=== PATIENT | male | born 1960 | race Caucasian/White ===

== ENCOUNTER 2017-07-20 01:57 | Inpatient (IN) | payer BC ==
[2017-07-20] MEDS ORDERED: Sodium Chloride 0.9% 10 ML Syringe FLUSH PRN (02:26)
--- NOTE | 2017-07-20 02:31 | EDM.PDOC ---
ED HPI GENERAL MEDICAL PROBLEM - General Chief Complaint: Abdominal Pain Stated Complaint: ABD PAIN Time Seen by Provider: 07/20/17 02:10 Source of Information: Reports: Patient History Limitations: Reports: No Limitations - History of Present Illness INITIAL COMMENTS - FREE TEXT/NARRATIVE: 48-year-old male with intense epigastric discomfort for the last 5 hours. After he got off the tractor this evening his "kidneys hurt" but as the night has gone on and is developed a new and epigastric pain. No nausea or vomiting. He did have a stent placed last year or so took a nitroglycerin but that had no effect. He has a lot of heartburn, and is also on Plavix because of the stent. He has not tried an antacid. He denies any shortness of breath. The pain seems to be slowly worsening with time. No recent trauma. No fevers or chills, denies a cough. Onset: Gradual Location: Reports: Chest (Epigastric area of the abdomen and lower chest), Abdomen Quality: Reports: Pressure, Sharp, Stabbing Severity: Moderate Improves with: Reports: None Worsens with: Reports: None Associated Symptoms: Denies: Cough, Fever/Chills, Headaches, Nausea/Vomiting, Shortness of Breath, Weakness Upper Abdomen Pain Score (Numeric/FACES): 6 - Related Data Allergies Allergy/AdvReac Type Severity Reaction Status Date / Time No Known Allergies Allergy Verified 07/20/17 02:14 Home Meds: Home Meds Aspirin 81 mg PO DAILY 01/14/16 [History] Lisinopril [Prinivil] 20 mg PO DAILY 01/14/16 [History] Metoprolol Tartrate 25 mg PO BID 01/14/16 [History] Triamcinolone Acetonide [Triamcinolone Acetonide 0.1% Crm] 1 applic TOP BID 03/23 [History] metroNIDAZOLE [metroNIDAZOLE 0.75% Cream] 1 applic TOP DAILY 11/05/16 [History] Clopidogrel Bisulfate [Clopidogrel] 75 mg PO DAILY 07/20/17 [History] atorvaSTATin Calcium [Atorvastatin Calcium] 40 mg PO DAILY 07/20/17 [History] Past Medical History HEENT History: Reports: Other (See Below) Other HEENT History: tinnitus Cardiovascular History: Reports: CAD, High Cholesterol, Hypertension Genitourinary History: Reports: Renal Calculus Musculoskeletal History: Reports: Fracture, Neck Pain, Chronic, Other (See Below ) Other Musculoskeletal History: cervical fusion Psychiatric History: Reports: Addiction 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 - Past Surgical History Cardiovascular Surgical History: Reports: Coronary Artery Stent, Percutaneous Transluminal Angioplasty Other Male Surgeries/Procedures: stent Neurological Surgical History: Reports: C-Spine Other Neurological Surgeries/Procedures: fusion Social & Family History - Tobacco Use Smoking Status *Q: Never Smoker - Caffeine Use Caffeine Use: Reports: Coffee - Recreational Drug Use Recreational Drug Use: No ED ROS GENERAL - Review of Systems Review Of Systems: See Below Constitutional: Denies: Fever, Chills HEENT: Reports: No Symptoms Respiratory: Denies: Shortness of Breath, Cough Cardiovascular: Reports: Chest Pain (Deep lower epigastric area only no radiation) GI/Abdominal: Reports: Abdominal Pain. Denies: Nausea, Vomiting : Reports: No Symptoms Musculoskeletal: Reports: Back Pain (Some back pain earlier today) Skin: Reports: No Symptoms Neurological: Reports: No Symptoms Psychiatric: Reports: No Symptoms ED EXAM, GENERAL - Physical Exam Exam: See Below Exam Limited By: No Limitations General Appearance: Alert, Mild Distress (Looks fairly uncomfortable) Eye Exam: Bilateral Eye: Normal Inspection Neck: Normal Inspection Respiratory/Chest: No Respiratory Distress, Lungs Clear Cardiovascular: Regular Rate, Rhythm GI/Abdominal: Soft, Tender (I can reproduce some tenderness with palpation directly over the epigastric area) Extremities: Normal Inspection Neurological: Alert, Oriented Psychiatric: Normal Affect, Normal Mood Skin Exam: Warm, Dry Course - Vital Signs Last Recorded V/S: Last Vital Signs Temp 98.9 F 07/20/17 12:17 Pulse 98 07/20/17 12:18 Resp 16 07/20/17 12:17 BP 129/90 07/20/17 12:18 Pulse Ox 88 L 07/20/17 12:57 - Orders/Labs/Meds Orders: Active Orders 24 hr Category Date Time Status Abdomen Pelvis w Cont [CT] Stat Exams 07/20/17 03:22 Taken Sodium Chloride 0.9% [Saline Flush] Med 07/20/17 02:26 Active 10 ml FLUSH ASDIRECTED PRN Saline Lock Insert [OM.PC] Routine Oth 07/20/17 02:26 Ordered EKG 12 Lead [EK] Routine Ther 07/20/17 02:26 Ordered Medication Orders Ropivacaine 50 ml/Dexamethasone 8 mg/Epinephrine HCl 0.4 mg/ Sodium Chloride 27.6 ml [address] Diphtheria/Tetanus/Acell Pertussis (Adacel) 0.5 ml IM .ONCE ONE Stop: 07/22/17 07:01 Hydromorphone HCl (Dilaudid Rolling Machine Operator 15 Mg In Ns 30 Ml) 0 mg IV ASDIRECTED PRN; Protocol PRN Reason: SAW SUPERINTENDENT PAIN CONTROL Last Admin: 07/20/17 06:07 Dose: 15 mg Dextrose/Lactated Ringer's (Dextrose 5%-Lactated Ringers) 1,000 mls @ 150 mls/ hr IV ASDIRECTED PRN PRN Reason: Other Last Admin: 07/20/17 14:59 Dose: 150 mls/hr Infusion: 07/20/17 12:43 Dose: 150 mls/hr Admin: 07/20/17 06:02 Dose: 150 mls/hr Ampicillin Sodium/Sulbactam (Sodium 3 gm/ Sodium Chloride) 100 mls @ 200 mls/ hr IV Q6H [facility] Last Admin: 07/20/17 15:02 Dose: 200 mls/hr Admin: 07/20/17 12:18 Dose: 200 mls/hr Aztreonam/Dextrose 1 gm/ (Premix) 50 mls @ 100 mls/hr IV Q8H [facility] Last Admin: 07/20/17 16:06 Dose: 100 mls/hr Admin: 07/20/17 10:58 Dose: 100 mls/hr Lisinopril (Prinivil) 20 mg PO DAILY [facility] Last Admin: 07/20/17 12:18 Dose: 20 mg Metoprolol Tartrate (Lopressor) 25 mg PO BID [facility] Last Admin: 07/20/17 12:18 Dose: 25 mg Naloxone HCl (Narcan) 0.1 mg IV ASDIRECTED PRN PRN Reason: decreased respiratory rate Ondansetron HCl (Zofran) 4 mg IVPUSH Q3H PRN PRN Reason: Nausea/Vomiting Last Admin: 07/20/17 11:07 Dose: 4 mg Sodium Chloride (Saline Flush) 10 ml FLUSH ASDIRECTED PRN PRN Reason: Keep Vein Open Last Admin: 07/20/17 02:53 Dose: 10 ml Labs: Laboratory Tests 07/20/17 07/20/17 Range/Units 02:40 02:40 WBC 6.4 (4.5-11.0) K/uL RBC 5.19 (4.30-5.90) M/uL Hgb 16.2 H (12.0-15.0) g/dL Hct 45.5 (40.0-54.0) % MCV 88 (80-98) fL MCH 31 (27-31) pg MCHC 36 (32-36) % Plt Count 146 L (150-400) K/uL Neut % (Auto) 51 (36-66) % Lymph % (Auto) 34 (24-44) % Jewell % (Auto) 11 H (2-6) % Eos % (Auto) 4 (2-4) % Baso % (Auto) 1 (0-1) % Sodium 140 (140-148) mmol/L Potassium 3.7 (3.6-5.2) mmol/L Chloride 107 (100-108) mmol/L Carbon Dioxide 23 (21-32) mmol/L Anion Gap 10.2 (5.0-14.0) mmol/L BUN 13 (7-18) mg/dL Creatinine 1.0 (0.8-1.3) mg/dL Est Cr Clr Drug Dosing 88.38 mL/min Estimated GFR (MDRD) > 60 (>60) Glucose 99 (74-106) mg/dL Calcium 8.7 (8.5-10.1) mg/dL Total Bilirubin 1.0 D (0.2-1.0) mg/dL AST 58 H D (15-37) U/L ALT 65 (12-78) U/L Alkaline Phosphatase 98 (46-116) U/L Troponin I < 0.017 (0.000-0.056) ng/mL Total Protein 7.1 (6.4-8.2) g/dL Albumin 3.4 (3.4-5.0) g/dL Globulin 3.7 H (2.3-3.5) g/dL Albumin/Globulin Ratio 0.9 L (1.2-2.2) Lipase 180 (73-393) U/L Meds: Medications Generic Name Dose Route Start Last Admin Trade Name Freq PRN Reason Stop Dose Admin Ropivacaine 50 ml/ 0 ml 07/21/17 09:30 Dexamethasone 8 mg/ NERVRT Epinephrine HCl 0.4 mg/ Sodium ASDIRECTED AVE Chloride 27.6 ml Diphtheria/Tetanus/Acell Pertussis 0.5 ml 07/22/17 07:00 Adacel IM 07/22/17 07:01 .ONCE ONE Hydromorphone HCl 0 mg 07/20/17 05:56 07/20/17 06:07 Dilaudid Rolling Machine Operator 15 Mg In Ns 30 Ml IV 15 mg ASDIRECTED PRN Administration SAW SUPERINTENDENT PAIN CONTROL Protocol Dextrose/Lactated Ringer's 1,000 mls @ 150 mls/hr 07/20/17 05:58 07/20/17 14: 59 Dextrose 5%-Lactated Ringers IV 150 mls/hr ASDIRECTED PRN Administration Other Ampicillin Sodium/Sulbactam 100 mls @ 200 mls/hr 07/20/17 10:00 07/20/17 15: 02 Sodium 3 gm/ Sodium Chloride IV 200 mls/hr Q6H AVE Administration Aztreonam/Dextrose 1 gm/ 50 mls @ 100 mls/hr 07/20/17 09:00 07/20/17 16:06 Premix IV 100 mls/hr Q8H AVE Administration Lisinopril 20 mg 07/20/17 11:30 07/20/17 12:18 Prinivil PO [address] Administration Metoprolol Tartrate 25 mg 07/20/17 11:45 07/20/17 12:18 Lopressor PO [address] Administration Naloxone HCl 0.1 mg 07/20/17 05:56 Narcan IV ASDIRECTED PRN decreased respiratory rate Ondansetron HCl 4 mg 07/20/17 05:59 07/20/17 11:07 Zofran IVPUSH 4 mg Q3H PRN Administration Nausea/Vomiting Sodium Chloride 10 ml 07/20/17 02:26 07/20/17 02:53 Saline Flush FLUSH 10 ml ASDIRECTED PRN Administration Keep Vein Open Discontinued Medications Generic Name Dose Route Start Last Admin Trade Name Freq PRN Reason Stop Dose Admin Al Hydroxide/Mg Hydroxide 15 0 ml 07/20/17 02:40 07/20/17 02:48 ml/ Lidocaine HCl 15 ml PO 07/20/17 02:41 30 ml ONETIME ONE Administration Hydromorphone HCl 0.5 mg 07/20/17 03:00 07/20/17 03:10 Dilaudid IVPUSH 07/20/17 03:01 0.5 mg ONETIME ONE Administration Hydromorphone HCl 0.5 mg 07/20/17 03:59 07/20/17 04:10 Dilaudid IVPUSH 07/20/17 04:00 0.5 mg ONETIME ONE Administration Sodium Chloride 1,000 mls @ 500 mls/hr 07/20/17 03:15 07/20/17 03:08 Normal Saline IV 500 mls/hr ASDIRECTED AVE Administration Sodium Chloride 85 mls @ 4 mls/sec 07/20/17 03:32 07/20/17 03:41 Normal Saline IV 07/20/17 03:33 4 mls/sec ASDIRECTED STA Administration Ampicillin Sodium/Sulbactam 50 mls @ 100 mls/hr 07/20/17 06:00 07/20/17 06:11 Sodium 1.5 gm/ Sodium Chloride IV 07/20/17 06:29 100 mls/hr ONETIME ONE Administration Iopamidol 150 ml 07/20/17 03:31 07/20/17 03:41 Isovue-300 (61%) IV 07/20/17 03:32 150 ml . DIRECTED STA Administration - Re-Assessments/Exams Free Text/Narrative Re-Assessment/Exam: 07/20/17 02:30 An EKG was obtained because of the cardiac history, CBC, CMP and lipase also obtained. A GI cocktail was given. 07/20/17 03:02 EKG was completely normal. GI cocktail helped his pain "about 5%". He was still fairly uncomfortable. At that point an IV was started, he was given 0.5 mg of IV Dilaudid and 500 mL an hour of normal saline with the intention of a CT scan with IV contrast. 07/20/17 03:36 CBC was normal, CMP also normal other than a mildly elevated AST. Troponin was 0 , rest of his labs were reassuring. 0.5 mg of IV Dilaudid gave him some relief but he was still very uncomfortable, the CT was ordered. Departure - Departure Time of Disposition: 05:37 Disposition: Admitted As Inpatient 64 Condition: Fair Clinical Impression: Abdominal pain Qualifiers: Abdominal location: epigastric Qualified Code(s): R10.13 - Epigastric pain - Discharge Information - My Orders Last 24 Hours: My Active Orders 07/20/17 02:26 Sodium Chloride 0.9% [Saline Flush] 10 ml FLUSH ASDIRECTED PRN Saline Lock Insert [OM.PC] Routine EKG 12 Lead [EK] Routine 07/20/17 03:22 Abdomen Pelvis w Cont [CT] Stat - Assessment/Plan Last 24 Hours: My Active Orders 07/20/17 02:26 Sodium Chloride 0.9% [Saline Flush] 10 ml FLUSH ASDIRECTED PRN Saline Lock Insert [OM.PC] Routine EKG 12 Lead [EK] Routine 07/20/17 03:22 Abdomen Pelvis w Cont [CT] Stat
[2017-07-20] MEDS ORDERED: Alum Hydrox/Mag Hydrox/Simeth 15 ML, Lidocaine 2% 15 ML PO ONE ×2 (02:40)
[2017-07-20] MEDS ORDERED: HYDROmorphone 0.5 MG/0.5 ML Syringe IVPUSH ONE ×2 (03:00→03:59)
[2017-07-20] MEDS ORDERED: Sodium Chloride 0.9% 1,000 ML IV SCH (03:15)
[2017-07-20] MEDS ORDERED: Iopamidol 612 MG/ML 150 ML Bottle IV STA (03:31)
[2017-07-20] MEDS ORDERED: Naloxone 0.4 MG/ML SDV IV PRN (05:56)
[2017-07-20] MEDS ORDERED: Ondansetron 4 MG/2 ML SDV IVPUSH PRN (05:59)
[2017-07-20] MEDS ORDERED: Ampicillin/Sulbactam Na 1.5 GM in Sodium Chloride 0.9% 50 ML IV ONE (06:00)
[2017-07-20] MEDS: Dextrose 5%-Lactated Ringers 1,000 ML IV PRN ×3 (06:02→23:19)
[2017-07-20] MEDS: HYDROmorphone/Normal Saline 15 MG/30 ML PCA IV PRN (06:07)
[2017-07-20] MEDS: Aztreonam/Dextrose-Water 1 GM in Premix Bag 1 BAG IV SCH ×2 (10:58→16:06)
--- NOTE | 2017-07-20 11:50 | PN ---
DATE OF SERVICE: 07/20/2017 SUBJECTIVE: Rafael is a 56-year-old male with intense epigastric discomfort 5 hours prior to coming to the emergency room this a.m. at 0210 hours. He had a complete workup in the emergency department and was found to have gallbladder disease. There was concern of having a stone in the common bile duct. Currently, he reports pain on a pain scale of 1 to 10, an 8/10. He is using his IP ATTORNEY. REVIEW OF SYSTEMS: Remainder of review of systems negative for any pertinent positives and negatives. OBJECTIVE: GENERAL: Rafael is a 56-year-old male. Color flushed. VITAL SIGNS: Height 6 feet. Weight is 223 inches. TPR is 97.3, 59, 16, and blood pressure 136/80. HEENT: Negative. NECK: Supple. HEART: Regular rate and rhythm. LUNGS: Clear. ABDOMEN: Tenderness in the right upper quadrant. Minimal right now he states with using his IP ATTORNEY for pain. Slight distention. EXTREMITIES: Without peripheral edema. ASSESSMENT: 1. Cholelithiasis. 2. Esophageal varices. 3. Cirrhosis of liver. PLAN: 1. Check MRCP today. 2. Unasyn 3 grams q.6 hours IV. 3. Azactam 1 gram q.8 hours IV. 4. Schedule, have consent signed for laparoscopic possible laparotomy, cholecystectomy with Brock-Cut needle liver biopsy. General anesthesia with TAP block. Catrachito Mcdaniel MD. , 07/21/2017, n.p.o. after midnight. 5. We will evaluate p.r.n. or in a.m. Nisa Resendiz PA-C /[id number]
--- NOTE | 2017-07-20 11:55 | MR ---
MRCP History: Eval for mild common bile duct stone. Technique: Routine MRCP sequences. Findings: The gallbladder demonstrates mild distention. There are small stones in the dependent porti on of the gallbladder. There is a stone demonstrated within the neck of the gallbladder. There is no wall thickening or pericholecystic fluid. The common bile duct is small measuring approximately 2 mm. No ductal stones are seen. The pancreas is unremarkable. There are cirrhotic changes of the liver. T he liver margins have a lobulated appearance. There is no ascites. There is mild splenomegaly with th e spleen measuring 15 cm. Impression: 1. Cholelithiasis. There are no inflammatory changes of the gallbladder. The common bile duct is norm al in caliber. There is no ductal stones seen. 2. Cirrhotic changes of the liver. There is splenomegaly. The findings are suggestive of underlying p ortal venous hypertension.
[2017-07-20] MEDS: Lisinopril 20 MG Tab PO SCH (12:18)
[2017-07-20] MEDS: Metoprolol Tartrate 25 MG Tab PO SCH ×2 (12:18→21:52)
[2017-07-20] MEDS: Ampicillin/Sulbactam Na 3 GM in Sodium Chloride 0.9% 100 ML IV SCH ×3 (12:18→21:56)
[2017-07-21] MEDS: Aztreonam/Dextrose-Water 1 GM in Premix Bag 1 BAG IV SCH ×3 (01:28→16:47)
[2017-07-21] MEDS: Ampicillin/Sulbactam Na 3 GM in Sodium Chloride 0.9% 100 ML IV SCH ×4 (03:29→21:42)
[2017-07-21] MEDS: HYDROmorphone/Normal Saline 15 MG/30 ML PCA IV PRN (05:20)
[2017-07-21] MEDS: Dextrose 5%-Lactated Ringers 1,000 ML IV PRN (07:09)
[2017-07-21] MEDS: Metoprolol Tartrate 25 MG Tab PO SCH ×2 (08:00→20:43)
[2017-07-21] MEDS ORDERED: fentaNYL 250 MCG/5 ML SDV ONE ×3 (08:42→12:31)
[2017-07-21] MEDS ORDERED: Neostigmine Methylsulfate 1 MG/ML 5 ML Syringe ONE ×2 (08:43→09:49)
[2017-07-21] MEDS ORDERED: Propofol 200 MG/20 ML SDV ONE ×2 (08:43→09:49)
[2017-07-21] MEDS ORDERED: Rocuronium 50 MG/5 ML Vial ONE ×2 (08:43→09:49)
[2017-07-21] MEDS ORDERED: Glycopyrrolate 0.2 MG/ML 5 ML MDV ONE ×2 (08:43→09:49)
[2017-07-21] MEDS ORDERED: Succinylcholine 200 MG/10 ML MDV ONE ×2 (08:43→09:49)
[2017-07-21] MEDS ORDERED: Ondansetron 4 MG/2 ML SDV ONE ×2 (08:43→09:49)
[2017-07-21] MEDS ORDERED: Dexamethasone 4 MG/ML SDV ONE ×2 (08:43→09:49)
[2017-07-21] MEDS ORDERED: Ropivacaine 50 ML, Dexamethasone 8 MG, EPINEPHrine 0.4 MG, Sodium Chloride 0.9% 27.6 ML NERVRT SCH ×4 (09:30)
[2017-07-21] MEDS ORDERED: Bupivacaine 0.5%/EPINEPHrine 1:200,000 50 ML MDV ONE (09:53)
--- NOTE | 2017-07-21 09:59 | PN ---
DATE OF SERVICE: 07/21/2017 SUBJECTIVE: Rafael is n.p.o. He will be having a laparoscopic possible open cholecystectomy today. His MRCP was negative yesterday. Vital signs have been stable. The pain has been managed with a DREDGE MASTER. REVIEW OF SYSTEMS: Remainder of review of systems negative for any pertinent positives and negatives. OBJECTIVE: GENERAL: Rafael Barfield is a 56-year-old male. He is alert and orientated. VITAL SIGNS: TPR is 99.7, 79, 16, and blood pressure 120/70. HEENT: Negative. NECK: Supple. HEART: Regular rate and rhythm. LUNGS: Clear. ABDOMEN: Remains to be tender in the right and left upper quadrants. EXTREMITIES: Without peripheral edema. ASSESSMENT: 1. Cholelithiasis. 2. Esophageal varices. 3. Cirrhosis of the liver. PLAN: 1. Remain n.p.o. for surgery. 2. Case to follow. 3. Orders to be written postoperatively. 4. We will evaluate p.r.n. or in a.m. Nisa Resendiz PA-C /[id number]
[2017-07-21] MEDS ORDERED: fentaNYL 100 MCG/2 ML SDV ONE ×2 (10:12→11:34)
[2017-07-21] MEDS ORDERED: Labetalol 20 MG/4 ML Syringe ONE (10:31)
[2017-07-21] MEDS ORDERED: Lactated Ringers 1,000 ML ONE (12:14)
[2017-07-21] MEDS ORDERED: Dextrose 5%-Lactated Ringers 1,000 ML IV PRN (13:25)
[2017-07-21] MEDS ORDERED: Ondansetron 4 MG/2 ML SDV IVPUSH PRN (13:27)
--- NOTE | 2017-07-21 14:44 | PCM.CONS ---
H&P History of Present Illness - General Date of Service: 07/21/17 Admit Problem/Dx: Admission Diagnosis/Problem Admission Diagnosis/Problem Abdominal pain - History of Present Illness Initial Comments - Free Text/Narative: Mr. Barfield is a 56-year-old gentleman who I been asked to see by Dr. Mcdaniel for further suggestions concerning evaluation of hepatic cirrhosis with portal hypertension and esophageal varices. Mr. Flower presented with right upper quadrant abdominal pain and was admitted to the hospital. After evaluation he was felt to have probable cholecystitis and underwent laparoscopic cholecystectomy today by Dr. Mcdaniel. Preoperative CT scan as well as MRI suggested hepatic cirrhosis with portal hypertension. At the time of surgery liver was also felt to look consistent with cirrhosis. Evaluation also suggests the presence of esophageal varices. He does have a past history of alcohol use but states that he has not consumed alcohol over the past 15 years. He denies a family history of liver disease or a personal history of liver disease up to this point. He also denies any history of IV drug use. He does have known coronary artery disease and is currently on beta ephraim therapy for that reason. Upper Abdomen Pain Score (Numeric/FACES): 5 - Related Data Allergies/Adverse Reactions: Allergies Allergy/AdvReac Type Severity Reaction Status Date / Time No Known Allergies Allergy Verified 07/20/17 02:14 Home Medications: Home Meds Aspirin 81 mg PO DAILY 01/14/16 [History] Lisinopril [Prinivil] 20 mg PO DAILY 01/14/16 [History] Metoprolol Tartrate 25 mg PO BID 01/14/16 [History] Triamcinolone Acetonide [Triamcinolone Acetonide 0.1% Crm] 1 applic TOP BID 03/23 [History] metroNIDAZOLE [metroNIDAZOLE 0.75% Cream] 1 applic TOP DAILY 11/05/16 [History] Clopidogrel Bisulfate [Clopidogrel] 75 mg PO DAILY 07/20/17 [History] atorvaSTATin Calcium [Atorvastatin Calcium] 40 mg PO DAILY 07/20/17 [History] Past Medical History HEENT History: Reports: Other (See Below) Other HEENT History: tinnitus Cardiovascular History: Reports: CAD, High Cholesterol, Hypertension Genitourinary History: Reports: Renal Calculus Musculoskeletal History: Reports: Fracture, Neck Pain, Chronic, Other (See Below ) Other Musculoskeletal History: cervical fusion Psychiatric History: Reports: Addiction 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 - Past Surgical History Cardiovascular Surgical History: Reports: Coronary Artery Stent, Percutaneous Transluminal Angioplasty Other Male Surgeries/Procedures: stent Neurological Surgical History: Reports: C-Spine Other Neurological Surgeries/Procedures: fusion Social & Family History - Tobacco Use Smoking Status *Q: Never Smoker Used Tobacco, but Quit: Yes Month/Year Tobacco Last Used: 03/1989 Second Hand Smoke Exposure: No - Caffeine Use Caffeine Use: Reports: Coffee Other Caffeine Use: 1 cup of coffee/day - Recreational Drug Use Recreational Drug Use: No H&P Review of Systems - Review of Systems: Review Of Systems: See Below Cardiovascular: Reports: No Symptoms Gastrointestinal: Reports: Abdominal Pain. Denies: Anorexia, Black Stool, Bloody Stool, Constipation, Diarrhea, Difficulty Swallowing, Distension Genitourinary: Reports: No Symptoms Exam - Exam Exam: See Below - Vital Signs Vital Signs: Last Vital Signs Temp 100.3 F 07/21/17 12:52 Pulse 75 07/21/17 14:00 Resp 16 07/21/17 14:00 BP 115/72 07/21/17 14:00 Pulse Ox 92 L 07/21/17 14:00 Weight: 223 lb 12.307 oz - Exam General: Alert, Oriented, Cooperative Neck: Supple, Trachea Midline, +2 Carotid Pulse wo Bruit Lungs: Clear to Auscultation, Normal Respiratory Effort Cardiovascular: Regular Rate, Regular Rhythm, Normal S1, Normal S2 GI/Abdominal Exam: Soft, No Organomegaly, Tender. No: Distended, Guarding, Rigid, Rebound Extremities: Non-Tender, No Pedal Edema Skin: Warm, Dry - Patient Data Result Diagrams: 07/20/17 02:40 07/20/17 02:40 Hever Results Last 24 hrs: Microbiology 07/21/17 11:32 Gram Stain - Final Other - Gallbladder Consult PN Assessment/Plan Procedures: Procedures ASSAY OF CK (CPK) (01/14/16) ASSAY OF TROPONIN QUANT (01/14/16) CARDIOVASCULAR STRESS TEST (11/10/16) CHEST X-RAY 1 VIEW FRONTAL (01/14/16) COMPLETE CBC W/AUTO DIFF WBC (03/20/16) COMPREHEN METABOLIC PANEL (01/14/16) CT ABD & PELVIS W/O CONTRAST (03/20/16) ELECTROCARDIOGRAM TRACING (01/14/16) EMERGENCY DEPT VISIT (03/20/16) EMERGENCY DEPT VISIT (01/14/16) HT MUSCLE IMAGE SPECT MULT (11/10/16) HYDRATE IV INFUSION ADD-ON (03/20/16) MANUAL THERAPY 1/> REGIONS (04/04/14) METABOLIC PANEL TOTAL CA (03/20/16) PROTHROMBIN TIME (01/14/16) PT EVALUATION (04/04/14) ROUTINE VENIPUNCTURE (03/20/16) THER/PROPH/DIAG INJ IV PUSH (03/20/16) THERAPEUTIC EXERCISES (04/04/14) THROMBOPLASTIN TIME PARTIAL (01/14/16) TX/PRO/DX INJ NEW DRUG ADDON (03/20/16) URINALYSIS AUTO W/SCOPE (03/20/16) Problem List Initiated/Reviewed/Updated: Yes My Orders Last 24 Hours: My Active Orders 07/21/17 14:06 ACTIN (SMOOTH MUSCLE) ANTIBODY Routine SIMRAN W/REFLEX Routine CERULOPLASMIN Routine FERRITIN, SERUM Routine HEPATITIS PANEL (4) Routine 07/21/17 14:09 PROT ELECTRO+INTERP, 24-HR UR Routine Plan: ASSESSMENT AND RECOMMENDATIONS HEPATIC CIRRHOSIS WITH PORTAL HYPERTENSION-biopsy obtained at the time of surgery today, evaluation also suggests the presence of esophageal varices. Previous history of alcohol use, but has been abstinent for the past 15 years. No other obvious risk factors by history. -Liver biopsy results pending -Laboratory tests for further evaluation; serology for hepatitis B and C, ferritin, ceruloplasmin, SIMRAN, serum protein electrophoresis, anti-smooth muscle antibody, antimitochondrial antibody -Continue current cardiac beta ephraim therapy -Outpatient consult with gastroenterology CORONARY ARTERY DISEASE-status post angioplasty and stent placement approximately 3 months ago -Continue Plavix -Continue outpatient medical therapy STATUS POST LAPAROSCOPIC CHOLECYSTECTOMY -Postop care per Dr. Mcdaniel Requesting Provider: JEAN PIERRE Date Consult Requested: 07/21/17 Reason for Consult: Hepatic cirrhosis with portal hypertension Patient History Reviewed: Yes
[2017-07-21] MEDS: Pantoprazole 40 MG Vial IV SCH (15:52)
[2017-07-21] MEDS: HYDROmorphone 2 MG Tab PO PRN (20:48)
[2017-07-21] MEDS: Dextrose 5%-Lactated Ringers 1,000 ML IV SCH (23:39)
[2017-07-22] MEDS: Aztreonam/Dextrose-Water 1 GM in Premix Bag 1 BAG IV SCH ×3 (00:34→17:43)
[2017-07-22] MEDS: Ampicillin/Sulbactam Na 3 GM in Sodium Chloride 0.9% 100 ML IV SCH ×4 (03:34→21:40)
[2017-07-22] MEDS: HYDROmorphone 2 MG Tab PO PRN ×4 (04:05→19:47)
[2017-07-22] MEDS ORDERED: Diphtheria,Pertussis(Acell),Tetanus Vaccine 0.5 ML SDV IM ONE ×2 (07:00→10:00)
[2017-07-22] MEDS: Metoprolol Tartrate 25 MG Tab PO SCH ×2 (08:46→21:40)
[2017-07-22] MEDS: Aspirin 81 MG Tab.EC PO SCH (08:47)
[2017-07-22] MEDS: Lisinopril 20 MG Tab PO SCH (08:47)
[2017-07-22] MEDS: Clopidogrel 75 MG Tab PO SCH (08:47)
[2017-07-22] MEDS ORDERED: Magnesium Hydroxide 400 MG/5 ML Susp 30 ML Cup PO ONE (09:00)
[2017-07-22] MEDS ORDERED: Bisacodyl 5 MG Tab PO ONE (10:00)
[2017-07-22 13:11] LABS: HBSAG SCREEN Negative (Negative); HEP A AB, IGM Negative (Negative); HEP B CORE AB, IGM Negative (Negative); HEP C VIRUS AB 0.1 s/co ratio (0.0-0.9)
[2017-07-22] MEDS: Dextrose 5%-Lactated Ringers 1,000 ML IV SCH ×2 (13:57→23:17)
[2017-07-22] MEDS ORDERED: Diltiazem IR 30 MG Tab PO ONE (14:16)
--- NOTE | 2017-07-22 14:38 | PN ---
DATE OF SERVICE: 07/22/2017 SUBJECTIVE: Rafael states that he is feeling well. His ALLIE drains put out 40 and 75 of a light red drainage. He is tolerating a full liquid diet. Orders are already written to advance as tolerated. He actually would like to go home today. He has also seen Dr. Leung. Lab values were abnormal with a phosphorus of 1, potassium of 8.1, bilirubin was 1.1. Culture and sensitivity of the wound showed no growth after one day. OBJECTIVE: GENERAL: Rafael Barfield is a 56-year-old male. He is alert and orientated. VITAL SIGNS: TPR 98.4, 57, 16; blood pressure 112/65. HEENT: Negative. NECK: Supple. HEART: Regular rate and rhythm. LUNGS: Clear. ABDOMEN: Dressings dry and intact. ALLIE drains intact draining as above, 110 and 110 of a light red drainage. EXTREMITIES: Without peripheral edema. ASSESSMENT: Laparoscopic cholecystectomy with Brock-Cut needle liver biopsy. PLAN: Dr. Leung has been consulted in regard to liver cirrhosis. He will monitor his phosphorus. Diet advanced as tolerated, already ordered milk of magnesia 30 mL given followed by Dulcolax 2 tablets 1 hour later. Good pulmonary toilet. We will evaluate p.r.n. or in a.m. Nisa Resendiz PA-C /[id number]
--- NOTE | 2017-07-22 14:48 | PCM.CONSN ---
- General Info Date of Service: 07/22/17 Subjective Update: Mr. Barfield is a 56-year-old gentleman who I was asked to see again today by Dr. Mcdaniel concerning tachycardia. He had been doing well thus far, this afternoon abruptly developed rapid heart rate in the range of 140-160. He reports that he is had episodes of this in the past, occurring 4-6 times per year. Usually if he lies down, it has resolved by the time he wakes up and gets up. He denies any current symptoms of chest pain or pressure, lightheadedness, or shortness of breath. EKG was obtained and shows atrial fibrillation with rapid ventricular response. Functional Status: Reports: Pain Controlled, Tolerating Diet, Urinating - Review of Systems General: Denies: Fever, Weakness, Chills Pulmonary: Denies: Shortness of Breath, Pleuritic Chest Pain, Cough, Sputum, Hemoptysis, Wheezing Cardiovascular: Reports: Palpitations. Denies: Chest Pain, Dyspnea on Exertion , Orthopnea, PND, Edema, Lightheadedness Gastrointestinal: Reports: Abdominal Pain. Denies: Difficulty Swallowing, Nausea, Vomiting - Patient Data Vitals - Most Recent: Last Vital Signs Temp 99.3 F 07/22/17 13:38 Pulse 135 H 07/22/17 13:38 Resp 18 07/22/17 13:38 BP 118/74 07/22/17 13:38 Pulse Ox 95 07/22/17 13:38 Weight - Most Recent: 223 lb 12.307 oz I&O - Last 24 Hours: Intake & Output 07/21/17 07/22/17 07/22/17 22:59 06:59 14:59 Intake Total 2270 1541 300 Output Total 1055 635 900 Balance 1215 906 -600 Lab Results Last 24 Hours: Laboratory Results - last 24 hr 07/21/17 07/21/17 07/22/17 Range/Units 14:20 15:06 04:45 WBC 11.2 H (4.5-11.0) K/uL RBC 4.46 (4.30-5.90) M/uL Hgb 13.5 D (12.0-15.0) g/dL Hct 40.7 (40.0-54.0) % MCV 91 (80-98) fL MCH 30 (27-31) pg MCHC 33 (32-36) % Plt Count 109 L (150-400) K/uL APTT (27.0-36.0) sec Sodium (140-148) mmol/L Potassium (3.6-5.2) mmol/L Chloride (100-108) mmol/L Carbon Dioxide (21-32) mmol/L Anion Gap (5.0-14.0) mmol/L BUN (7-18) mg/dL Creatinine (0.8-1.3) mg/dL Est Cr Clr Drug Dosing mL/min Estimated GFR (MDRD) (>60) Glucose (74-106) mg/dL Calcium (8.5-10.1) mg/dL Phosphorus (2.5-4.9) mg/dL Magnesium (1.8-2.4) mg/dL Ferritin 362 (8-388) ng/ml Total Bilirubin (0.2-1.0) mg/dL AST (15-37) U/L ALT (12-78) U/L Alkaline Phosphatase (46-116) U/L Total Protein (6.4-8.2) g/dL Albumin (3.4-5.0) g/dL Globulin (2.3-3.5) g/dL Albumin/Globulin Ratio (1.2-2.2) Hepatitis A IgM Ab Negative (Negative) Hep Bs Antigen Negative (Negative) Hep B Core IgM Ab Negative (Negative) Hepatitis C Antibody 0.1 (0.0-0.9) s/co ratio 18 / Range/Units 04:45 04:45 WBC (4.5-11.0) K/uL RBC (4.30-5.90) M/uL Hgb (12.0-15.0) g/dL Hct (40.0-54.0) % MCV (80-98) fL MCH (27-31) pg MCHC (32-36) % Plt Count (150-400) K/uL APTT 25.7 L (27.0-36.0) sec Sodium 138 L (140-148) mmol/L Potassium 3.9 (3.6-5.2) mmol/L Chloride 105 (100-108) mmol/L Carbon Dioxide 26 (21-32) mmol/L Anion Gap 10.9 (5.0-14.0) mmol/L BUN 12 (7-18) mg/dL Creatinine 1.0 (0.8-1.3) mg/dL Est Cr Clr Drug Dosing 88.50 mL/min Estimated GFR (MDRD) > 60 (>60) Glucose 150 H (74-106) mg/dL Calcium 8.1 L (8.5-10.1) mg/dL Phosphorus 1.0 L (2.5-4.9) mg/dL Magnesium 1.8 (1.8-2.4) mg/dL Ferritin (8-388) ng/ml Total Bilirubin 1.1 H (0.2-1.0) mg/dL AST 49 H (15-37) U/L ALT 54 (12-78) U/L Alkaline Phosphatase 72 (46-116) U/L Total Protein 6.0 L (6.4-8.2) g/dL Albumin 2.6 L (3.4-5.0) g/dL Globulin 3.4 (2.3-3.5) g/dL Albumin/Globulin Ratio 0.8 L (1.2-2.2) Hepatitis A IgM Ab (Negative) Hep Bs Antigen (Negative) Hep B Core IgM Ab (Negative) Hepatitis C Antibody (0.0-0.9) s/co ratio Hever Results Last 24 Hours: Microbiology 07/21/17 11:32 Gram Stain - Final Other - Gallbladder Wound Culture - Preliminary NO GROWTH AFTER 1 DAY Anaerobic Culture - Preliminary NO GROWTH AFTER 1 DAY Med Orders - Current: Current Medications Aspirin (Halfprin) 81 mg PO DAILY [facility] Last Admin: 07/22/17 08:47 Dose: 81 mg Clopidogrel Bisulfate (Plavix) 75 mg PO DAILY [facility] Last Admin: 07/22/17 08:47 Dose: 75 mg Diltiazem HCl (Cardizem) 30 mg PO Q6H [facility] Hydromorphone HCl (Dilaudid) 2 - 4 mg PO Q4H PRN PRN Reason: PAIN Last Admin: 07/22/17 08:51 Dose: 4 mg Ampicillin Sodium/Sulbactam (Sodium 3 gm/ Sodium Chloride) 100 mls @ 200 mls/ hr IV Q6H [facility] Last Admin: 07/22/17 10:54 Dose: 200 mls/hr Aztreonam/Dextrose 1 gm/ (Premix) 50 mls @ 100 mls/hr IV Q8H [facility] Last Admin: 07/22/17 09:06 Dose: 100 mls/hr Dextrose/Lactated Ringer's (Dextrose 5%-Lactated Ringers) 1,000 mls @ 100 mls/ hr IV ASDIRECTED [facility] Last Admin: 07/22/17 13:57 Dose: 100 mls/hr Lisinopril (Prinivil) 20 mg PO DAILY [facility] Last Admin: 07/22/17 08:47 Dose: 20 mg Metoprolol Tartrate (Lopressor) 25 mg PO BID [facility] Last Admin: 07/22/17 08:46 Dose: 25 mg Ondansetron HCl (Zofran) 4 mg IVPUSH Q4H PRN PRN Reason: Nausea/Vomiting Pantoprazole Sodium (Protonix Iv) 40 mg IV Q24H [facility] Last Admin: 07/21/17 15:52 Dose: 40 mg Sodium Chloride (Saline Flush) 10 ml FLUSH ASDIRECTED PRN PRN Reason: Keep Vein Open Last Admin: 07/20/17 02:53 Dose: 10 ml Discontinued Medications Bisacodyl (Dulcolax) 20 mg PO ONETIME ONE Stop: 07/22/17 10:01 Last Admin: 07/22/17 10:54 Dose: 20 mg Bupivacaine HCl/Epinephrine Bitart (Marcaine 0.5%/Epinephrine 1:200,000) Confirm Administered Dose 50 ml .ROUTE .STK-MED ONE Stop: 07/21/17 09:54 Al Hydroxide/Mg Hydroxide 15 (ml/ Lidocaine HCl 15 ml) 0 ml PO ONETIME ONE Stop: 07/20/17 02:41 Last Admin: 07/20/17 02:48 Dose: 30 ml Ropivacaine 50 ml/Dexamethasone 8 mg/Epinephrine HCl 0.4 mg/ Sodium Chloride 27.6 ml 0 ml NERVRT ASDIRECTED [facility] Last Admin: 07/21/17 11:32 Dose: 80 syringe Dexamethasone (Dexamethasone) Confirm Administered Dose 4 mg .ROUTE .STK-MED ONE Stop: 07/21/17 08:44 Dexamethasone (Dexamethasone) Confirm Administered Dose 4 mg .ROUTE .STK-MED ONE Stop: 07/21/17 09:50 Diltiazem HCl (Cardizem) 60 mg PO STAT ONE Stop: 07/22/17 14:17 Last Admin: 07/22/17 14:22 Dose: 60 mg Diltiazem HCl (Cardizem) 30 mg PO Q6HR [facility] Fentanyl (Sublimaze) Confirm Administered Dose 250 mcg .ROUTE .STK-MED ONE Stop: 07/21/17 08:43 Fentanyl (Sublimaze) Confirm Administered Dose 250 mcg .ROUTE .STK-MED ONE Stop: 07/21/17 09:50 Fentanyl (Sublimaze) Confirm Administered Dose 100 mcg .ROUTE .STK-MED ONE Stop: 07/21/17 10:13 Fentanyl (Sublimaze) Confirm Administered Dose 100 mcg .ROUTE .STK-MED ONE Stop: 07/21/17 11:35 Fentanyl (Sublimaze) Confirm Administered Dose 250 mcg .ROUTE .STK-MED ONE Stop: 07/21/17 12:32 Glycopyrrolate (Robinul) Confirm Administered Dose 1 mg .ROUTE .STK-MED ONE Stop: 07/21/17 08:44 Glycopyrrolate (Robinul) Confirm Administered Dose 1 mg .ROUTE .STK-MED ONE Stop: 07/21/17 09:50 Hydromorphone HCl (Dilaudid) 0.5 mg IVPUSH ONETIME ONE Stop: 07/20/17 03:01 Last Admin: 07/20/17 03:10 Dose: 0.5 mg Hydromorphone HCl (Dilaudid) 0.5 mg IVPUSH ONETIME ONE Stop: 07/20/17 04:00 Last Admin: 07/20/17 04:10 Dose: 0.5 mg Hydromorphone HCl (Dilaudid Prosthetic Assistant 15 Mg In Ns 30 Ml) 0 mg IV ASDIRECTED PRN; Protocol PRN Reason: [employer] PAIN CONTROL Last Admin: 07/21/17 05:20 Dose: 15 mg Sodium Chloride (Normal Saline) 1,000 mls @ 500 mls/hr IV ASDIRECTED AVE Last Admin: 07/20/17 03:08 Dose: 500 mls/hr Sodium Chloride (Normal Saline) 85 mls @ 4 mls/sec IV ASDIRECTED STA Stop: 07/20/17 03:33 Last Admin: 07/20/17 03:41 Dose: 4 mls/sec Dextrose/Lactated Ringer's (Dextrose 5%-Lactated Ringers) 1,000 mls @ 150 mls/ hr IV ASDIRECTED PRN PRN Reason: Other Last Admin: 07/21/17 07:09 Dose: 150 mls/hr Ampicillin Sodium/Sulbactam (Sodium 1.5 gm/ Sodium Chloride) 50 mls @ 100 mls/ hr IV ONETIME ONE Stop: 07/20/17 06:29 Last Admin: 07/20/17 06:11 Dose: 100 mls/hr Lactated Ringer's (Ringers, Lactated) Confirm Administered Dose 1,000 mls @ as directed .ROUTE .STK-MED ONE Stop: 07/21/17 12:15 Dextrose/Lactated Ringer's (Dextrose 5%-Lactated Ringers) 1,000 mls @ 100 mls/ hr IV ASDIRECTED PRN PRN Reason: Other Last Admin: 07/21/17 13:27 Dose: 100 mls/hr Iopamidol (Isovue-300 (61%)) 150 ml IV . DIRECTED STA Stop: 07/20/17 03:32 Last Admin: 07/20/17 03:41 Dose: 150 ml Labetalol HCl (Normodyne) Confirm Administered Dose 20 mg .ROUTE .STK-MED ONE Stop: 07/21/17 10:32 Magnesium Hydroxide (Milk Of Magnesia) 30 ml PO ONETIME ONE Stop: 07/22/17 09:01 Last Admin: 07/22/17 10:54 Dose: 30 ml Naloxone HCl (Narcan) 0.1 mg IV ASDIRECTED PRN PRN Reason: decreased respiratory rate Neostigmine Methylsulfate (Neostigmine) Confirm Administered Dose 5 mg .ROUTE .STK-MED ONE Stop: 07/21/17 08:44 Neostigmine Methylsulfate (Neostigmine) Confirm Administered Dose 5 mg .ROUTE .STK-MED ONE Stop: 07/21/17 09:50 Ondansetron HCl (Zofran) 4 mg IVPUSH Q3H PRN PRN Reason: Nausea/Vomiting Last Admin: 07/20/17 11:07 Dose: 4 mg Ondansetron HCl (Zofran) Confirm Administered Dose 4 mg .ROUTE .STK-MED ONE Stop: 07/21/17 08:44 Ondansetron HCl (Zofran) Confirm Administered Dose 4 mg .ROUTE .STK-MED ONE Stop: 07/21/17 09:50 Propofol (Diprivan 20 Ml) Confirm Administered Dose 200 mg .ROUTE .STK-MED ONE Stop: 07/21/17 08:44 Propofol (Diprivan 20 Ml) Confirm Administered Dose 200 mg .ROUTE .STK-MED ONE Stop: 07/21/17 09:50 Rocuronium Ruby (Zemuron) Confirm Administered Dose 50 mg .ROUTE .STK-MED ONE Stop: 07/21/17 08:44 Rocuronium Ruby (Zemuron) Confirm Administered Dose 50 mg .ROUTE .STK-MED ONE Stop: 07/21/17 09:50 Succinylcholine Chloride (Quelicin) Confirm Administered Dose 200 mg .ROUTE .STK -MED ONE Stop: 07/21/17 08:44 Succinylcholine Chloride (Quelicin) Confirm Administered Dose 200 mg .ROUTE .STK -MED ONE Stop: 07/21/17 09:50 - Exam Quality Assessment: DVT Prophylaxis General: Alert, Oriented, Cooperative, Mild Distress Lungs: Clear to Auscultation, Normal Respiratory Effort Cardiovascular: No Murmurs, Irregular Rhythm, Tachycardia GI/Abdominal Exam: Soft, No Organomegaly, Tender. No: Distended, Guarding, Rigid, Rebound Extremities: Non-Tender, No Pedal Edema Consult PN Assessment/Plan Procedures: Procedures ASSAY OF CK (CPK) (01/14/16) ASSAY OF TROPONIN QUANT (01/14/16) CARDIOVASCULAR STRESS TEST (11/10/16) CHEST X-RAY 1 VIEW FRONTAL (01/14/16) COMPLETE CBC W/AUTO DIFF WBC (03/20/16) COMPREHEN METABOLIC PANEL (01/14/16) CT ABD & PELVIS W/O CONTRAST (03/20/16) ELECTROCARDIOGRAM TRACING (01/14/16) EMERGENCY DEPT VISIT (03/20/16) EMERGENCY DEPT VISIT (01/14/16) HT MUSCLE IMAGE SPECT MULT (11/10/16) HYDRATE IV INFUSION ADD-ON (03/20/16) MANUAL THERAPY 1/> REGIONS (04/04/14) METABOLIC PANEL TOTAL CA (03/20/16) PROTHROMBIN TIME (01/14/16) PT EVALUATION (04/04/14) ROUTINE VENIPUNCTURE (03/20/16) THER/PROPH/DIAG INJ IV PUSH (03/20/16) THERAPEUTIC EXERCISES (04/04/14) THROMBOPLASTIN TIME PARTIAL (01/14/16) TX/PRO/DX INJ NEW DRUG ADDON (03/20/16) URINALYSIS AUTO W/SCOPE (03/20/16) Problem List Initiated/Reviewed/Updated: Yes My Orders Last 24 Hours: My Active Orders 07/21/17 14:09 PROT ELECTRO+INTERP, 24-HR UR Routine 07/21/17 14:20 ACTIN (SMOOTH MUSCLE) ANTIBODY Routine SIMRAN W/REFLEX Routine CERULOPLASMIN Routine 07/22/17 20:30 Diltiazem IR [Cardizem] 30 mg PO Q6H 07/23/17 Breakfast NPO After Midnight [Nothing per Oral After Midnight Diet] [DIET] Plan: ASSESSMENT AND RECOMMENDATIONS ATRIAL FIBRILLATION WITH RAPID VENTRICULAR RESPONSE-abrupt onset this afternoon , history of previous undiagnosed episodes in the past. He refuses transfer to the intensive care unit for management with IV medication. -Diltiazem immediate release 60 mg by mouth now -Diltiazem 30 mg by mouth every 6 hours -Nothing by mouth after midnight for possible cardioversion in a.m. -Outpatient follow-up with cardiology HEPATIC CIRRHOSIS WITH PORTAL HYPERTENSION-biopsy obtained at the time of surgery today, evaluation also suggests the presence of esophageal varices. Previous history of alcohol use, but has been abstinent for the past 15 years. No other obvious risk factors by history. -Liver biopsy results pending -Laboratory tests for further evaluation; serology for hepatitis B and C, ferritin, ceruloplasmin, SIMRAN, serum protein electrophoresis, anti-smooth muscle antibody, antimitochondrial antibody -Continue current cardiac beta ephraim therapy -Outpatient consult with gastroenterology CORONARY ARTERY DISEASE-status post angioplasty and stent placement approximately 3 months ago -Continue Plavix -Continue outpatient medical therapy STATUS POST LAPAROSCOPIC CHOLECYSTECTOMY -Postop care per Dr. Mcdaniel
[2017-07-22] MEDS: Pantoprazole 40 MG Vial IV SCH (15:38)
[2017-07-22] MEDS ORDERED: Diltiazem IR 30 MG Tab PO SCH ×2 (18:30→20:30)
[2017-07-23] MEDS: Aztreonam/Dextrose-Water 1 GM in Premix Bag 1 BAG IV SCH ×2 (01:05→09:07)
[2017-07-23] MEDS: Ampicillin/Sulbactam Na 3 GM in Sodium Chloride 0.9% 100 ML IV SCH ×2 (03:47→11:11)
[2017-07-23] MEDS: HYDROmorphone 2 MG Tab PO PRN ×2 (06:12→10:53)
[2017-07-23 08:29] VITALS: BP 135/74
[2017-07-23] MEDS: Metoprolol Tartrate 25 MG Tab PO SCH (09:06)
[2017-07-23] MEDS: Aspirin 81 MG Tab.EC PO SCH (09:07)
[2017-07-23] MEDS: Clopidogrel 75 MG Tab PO SCH (09:07)
[2017-07-23] MEDS: Lisinopril 20 MG Tab PO SCH (09:07)
--- NOTE | 2017-07-23 09:44 | DISCH ---
ADMISSION DIAGNOSES: 1. Abdominal pain. 2. Elevated liver function test. 3. Status post cardiac stent. 4. Coronary artery disease. 5. Tinnitus. 6. Hypercholesterolemia. 7. Hypertension. 8. Renal calculus. 9. History of fracture of neck. 10.Chronic neck pain. 11.Alcohol addiction, 15 years sober. DISCHARGE DIAGNOSES: Diagnostic laparoscopy with cholecystectomy, drainage of pericholecystic abscess, liver biopsy, umbilical hernia for acute necrotizing cholecystitis, pericholecystic abscess, hepatic cirrhosis, and umbilical hernia. Date of surgery, 07/21/2017. HISTORY: Rafael Barfield is a 56-year-old male who presented to the emergency room for severe abdominal pain. He was admitted on 07/19/2017, had an MRCP on 07/20/2017, and the surgery was on 07/21/2017. After preoperative evaluation and discussion of possible risks and possible complications, he wished to proceed with surgical procedure. HOSPITAL COURSE: Rafael had his surgery on 07/21/2017. He had no operative complications. On postop day #1, he developed an episode of atrial fibrillation. He was evaluated by Lorenzo Leung MD, was given one dose of oral Cardizem, and converted within 15 minutes. He declined going to ICU stating that he has had this before and it goes away after he lays down and goes to bed. Rafael requested to be discharged. States his pain is controlled. His appetite has been okay. He has not had a bowel movement, but states he is passing flatus and feels like, once he gets home, he will not have any problems. PHYSICAL EXAMINATION: GENERAL: Rafael is a 56-year-old male. VITAL SIGNS: Height is 6 feet. Weight is 223 pounds. TPR is 98.5, 59, 18, and blood pressure 135/74. HEENT: Negative. NECK: Supple. HEART: Regular rate and rhythm. LUNGS: Clear. ABDOMEN: Sutures in place. ALLIE drains will be removed prior to discharge. 4x4s will be replaced over them. They have been draining a light pink serosanguineous drainage. Abdominal binder has been on. EXTREMITIES: Without peripheral edema. DISPOSITION: Discharged to home. CONDITION: Stable and improving. FOLLOWUP APPOINTMENT: With Catrachito Mcdaniel MD, on 08/03/2017 at 8 a.m. DISCHARGE MEDICATIONS: Home Medications: 1. Augmentin 875 mg b.i.d. for 5 days. 2. Dilaudid 2 mg 1 to 2 q.4 hours p.r.n. pain, #40. 3. Milk of magnesia 30 mL, two were sent home to take one daily until BM. To resume home medications of; 1. Lisinopril 20 mg daily. 2. Clopidogrel 75 mg daily. 3. Metoprolol tartrate 25 mg twice daily. 4. Triamcinolone 0.1% cream twice daily. 5. Atorvastatin 40 mg oral daily. 6. Metronidazole 0.75% cream applied to affected area as directed. DIET: Usual diet as tolerated. Drink 8 to 10 glasses of water a day. ACTIVITY: No lifting greater than 10 pounds for 2 weeks[address]riving, do not drive while on pain medication. May shower. DISCHARGE INSTRUCTIONS: Notify provider if any fever, increased pain, nausea, or vomiting. Wear abdominal binder for 2 weeks and then as tolerated. Special instructions; use incentive spirometer 10 times every hour while awake for 1 week and to see a GI specialist in regard to changes seen in liver.
[2017-07-23] MEDS ORDERED: Magnesium Hydroxide 400 MG/5 ML Susp 30 ML Cup PO ONE (11:57)
[2017-07-25 14:11] LABS: M-SPIKE, % Not Observed % (Not Observed); PROTEIN,TOTAL,URINE 8.5 mg/dL (Not Estab.)
--- NOTE | 2017-08-02 12:35 | OR ---
DATE OF PROCEDURE: 07/21/2017 PREOPERATIVE DIAGNOSIS: Acute cholecystitis. POSTOPERATIVE DIAGNOSES: 1. Acute necrotizing cholecystitis with pericholecystic abscess. 2. Hepatic cirrhosis. 3. Umbilical hernia. OPERATIVE PROCEDURES: Diagnostic laparoscopy with; 1. Cholecystectomy (21844). 2. Drainage of pericholecystic abscess (86525). 3. Brock-Cut needle liver biopsy (37051). 4. Repair of incarcerated umbilical hernia (05662). ANESTHESIA: General. EQUIPMENT WASHER: Nisa Resendiz PA-C. INDICATION FOR PROCEDURE: This is a 56-year-old male presenting with an acute cholecystitis. After preoperative evaluation and discussion, he wished to proceed with laparoscopic or if necessary open cholecystectomy. Potential risks including bleeding, infection, injury to underlying viscera, possible persistence or recurrent symptoms were gone over, and the patient wishes to proceed. Additionally, he appeared to have hepatic cirrhosis based on the preoperative imaging with some portal hypertension. He is aware that this may put him at higher risk for significant bleeding problems. We will also obtain a liver biopsy to establish the histologic status of the liver at this point. DETAILS OF PROCEDURE: The patient was taken to the operating room and after general endotracheal anesthesia was induced, he was placed in a lithotomy position, and the abdomen was prepped and draped. In the periumbilical area, the patient was noted to have an umbilical hernia, which was incarcerated. A transverse incision was then made beneath the umbilical fold and the underlying hernia contents were dissected free and delivered from the field. A 12-mm trocar was then easily passed through the defect. Following this, peritoneal cavity was inflated to 15 mmHg pressure with CO2. Laparoscope was reinserted and no underlying trocar insertion site injuries were seen. Following this, a 12-mm trocar was placed in the upper epigastrium and 2 trocars were placed in the right midabdomen. As expected, the patient was noted to have an acute cholecystitis. There was partial necrosis of the gallbladder wall and an abscess located posterior to this with localized peritonitis associated with that. Cultures of this were obtained as the abscess was drained. The patient was noted to have a diffuse macronodular cirrhosis and photodocumentation of this was obtained. Brock-Cut needle biopsies were obtained from the right lobe of the liver. Relatively, a little bleeding was noted given the degree of portal hypertension present, which was controlled with electrocautery. At this point, the gallbladder was retracted anteriorly and laterally, and dissection began around the gallbladder bed and dissection continued along the gallbladder neck-cystic duct junction. Once that area was well delineated as was the cystic artery encasing to it. Both structures were taken with a SEUN wright load. As the tissue was quite thickened and edematous, this allowed dissection of gallbladder off the edges of the gallbladder bed. The gallbladder was then opened and some stones evacuated, and the gallbladder excised leaving the mucosal surfaces attached to the liver in place. Once this was completed, the gallbladder portion to be removed was taken out through the epigastric trocar site with a specimen bag. The mucosa was then completely obliterated with cautery being turned up to 100 setting. Once that was completed, no further problems were noted. A Chau-Zaman drain was then placed through the right lateral trocar, placed in the area of the gallbladder bed and into the gallbladder abscess. Attention was then taken to the umbilical hernia. With the camera port now being in the epigastric site, the trocars were removed at that level and several sutures of 0 Vicryl stitch were placed with the laparoscopic suture passer with the closure oriented in transverse orientation. Once these were completed, the remaining trocar was then removed and the fascia at the epigastric site closed with 0 Vicryl stitch, and the umbilical hernia site stitches then tied as well. The epigastric site was packed open with Iodoform gauze, after which the other trocar sites were closed with 4-0 Vicryl skin stitch. The patient was taken to the recovery room in a satisfactory condition. Physician anesthesiologist assistant, Nisa Resendiz, played an essential role in assisting in this case, helping to position the patient, retract structures as needed, as well as suturing and cutting sutures when indicated. Her presence improved patient's safety and decreased the operative time. Catrachito Mcdaniel MD /[id number]
== END 2017-07-23 12:10 | disposition home or self-care (01) | DRG 263 ==
LOC: JP.ED 01:57 → JP.2SS 04:23
PROVIDERS: ADMIT Surgery; ATTEND Surgery
PROC: 0FT44ZZ Resection of Gallbladder, Percutaneous Endoscopic Approach (ICD-10-PCS; principal; 2017-07-21)
PROC: 0WQF0ZZ Repair Abdominal Wall, Open Approach (ICD-10-PCS; 2017-07-21)
PROC: 0W9G4ZX Drainage of Peritoneal Cavity, Percutaneous Endoscopic Approach, Diagnostic (ICD-10-PCS; 2017-07-21)
PROC: 0FB14ZX Excision of Right Lobe Liver, Percutaneous Endoscopic Approach, Diagnostic (ICD-10-PCS; 2017-07-21)
DX: K80.00 Calculus of gallbladder with acute cholecystitis without obstruction (principal); K74.69 Other cirrhosis of liver; K76.6 Portal hypertension; I85.10 Secondary esophageal varices without bleeding; K42.0 Umbilical hernia with obstruction, without gangrene; I48.91 Unspecified atrial fibrillation; I25.10 Atherosclerotic heart disease of native coronary artery without angina pectoris; H93.19 Tinnitus, unspecified ear; E78.00 Pure hypercholesterolemia, unspecified; I10 Essential (primary) hypertension; G89.29 Other chronic pain; M54.2 Cervicalgia; F10.21 Alcohol dependence, in remission; R12 Heartburn; Z79.02 Long term (current) use of antithrombotics/antiplatelets; Z79.899 Other long term (current) drug therapy; Z79.82 Long term (current) use of aspirin; Z95.5 Presence of coronary angioplasty implant and graft; Z87.442 Personal history of urinary calculi; Z98.1 Arthrodesis status; Z79.01 Long term (current) use of anticoagulants
CPT/HCPCS: 36415; 74177; 74181; 74181-26; 80053; 80074; 82390; 82728; 83516; 83690; 83735; 84100; 84166; 84484; 85025; 85027; 85730; 86038; 86255; 87070; 87075; 87205; 93005; 94762; 96361; 96374; 96376; 99285-25; A9270-GY; C9113; J0171; J0287; J0295; J0330; J1100; J1170; J2405; J2704; J2710; J2795; J3010; J3490; J7030; J7042; J7050; J7120

== ENCOUNTER 2021-05-05 07:50 | Day surgery (SDC) | payer BC ==
[~2021-05-05 07:50] MED LIST: Midazolam 1 MG/ML 2 ML SDV ONE; Propofol 200 MG/20 ML SDV ONE; fentaNYL 100 MCG/2 ML SDV ONE
[2021-05-05] MEDS ORDERED: Lactated Ringers 1,000 ML IV SCH (08:30)
[2021-05-05 10:36] VITALS: BP 113/60; PULSE 70
== END 2021-05-05 10:53 | disposition home or self-care (01) ==
LOC: JP.SDS 07:50
PROVIDERS: ATTEND Family Medicine
DX: D12.4 Benign neoplasm of descending colon (principal); K64.4 Residual hemorrhoidal skin tags; K64.8 Other hemorrhoids; I10 Essential (primary) hypertension; I25.10 Atherosclerotic heart disease of native coronary artery without angina pectoris
CPT/HCPCS: 88305; J2250; J2704; J3010; J7120

== ENCOUNTER 2022-10-25 11:02 | Emergency (ER) | payer BC, OTHER ==
[2022-10-25 11:24] VITALS: BP 149/87; PULSE 95
[2022-10-25 12:09] LABS: BASOPHILS ABSOLUTE AUTO 0.04 K/uL (0.00-0.10); BASOPHILS PERCENT AUTO 0.8 % (0.1-1.3); HEMATOCRIT 42.8 % (38.4-49.7); HEMOGLOBIN 15.5 g/dL (12.9-16.9); IMMATURE GRAN ABSOLUTE AUTO 0.01 K/uL (0.00-0.23); IMMATURE GRAN PERCENT AUTO 0.2 % (0.0-0.7); LYMPHOCYTES ABSOLUTE AUTO 0.82 K/uL (0.8-3.3); LYMPHOCYTES PERCENT AUTO 16.7 % (11.4-47.7); MEAN CORPUSCULAR HEMOGLOBIN 32.2 pg (31.6-35.5); MEAN CORPUSCULAR HGB CONC 36.2 g/dL (31.6-35.5); MONOCYTES ABSOLUTE AUTO 0.26 K/uL (0.20-0.90); MONOCYTES PERCENT AUTO 5.3 % (3.3-12.6); NEUTROPHILS ABSOLUTE AUTO 3.69 K/uL (1.0-7.6); PLATELET COUNT,PLT 97 K/uL (130-375); RED BLOOD CELL COUNT 4.81 M/uL (4.14-5.76); WHITE BLOOD CELL COUNT,WBC 4.9 K/uL (3.2-11.0)
[2022-10-25 12:30] LABS: ANION GAP 10.9 mmol/L (5.0-14.0); CALCIUM 8.5 mg/dL (8.5-10.1); CREATININE 0.8 mg/dL (0.8-1.3); EST CRCL DRUG DOSING (CG) 100.66 mL/min; POTASSIUM,K 3.6 mmol/L (3.6-5.2); TROPONIN I HIGH SENSITIVITY 23.7 pg/mL (<=60.3)
== END 2022-10-25 12:57 | disposition home or self-care (01) ==
LOC: JP.ED 11:02
DX: R42 Dizziness and giddiness (principal); R07.9 Chest pain, unspecified; I25.10 Atherosclerotic heart disease of native coronary artery without angina pectoris; I10 Essential (primary) hypertension; E78.00 Pure hypercholesterolemia, unspecified; Z79.899 Other long term (current) drug therapy; Z79.82 Long term (current) use of aspirin
CPT/HCPCS: 36415; 71046; 71046-26; 80048; 84484; 85025; 93005; 99284